=== PATIENT | female | born 1940 | race Caucasian/White ===

== ENCOUNTER 2021-12-14 22:53 | Emergency (ER) | payer MEDICARE, OTHER ==
[~2021-12-14] VITALS: Ht 167.6 cm; Wt 65.8 kg
--- NOTE | 2021-12-14 23:17 | NUR ---
BIBSISTER FOR POSS SYNCOPAL EPISODE UNWITNESSED. PATIENT WAS WALKING TO THE CAR AND STATES SHE SOMEHOW FELL AND DOES NOT RECALL HOW. PATIENT DENIES ANY DIZZINESS, WEAKNESS, C/P OR SOB CURRENTLY OR AT TIME OF EVENT. PT AWAKE AND ALERT WITHOUT NEURO DEFECITS. PT PRESENTING WITH HEMATOMA TO RIGHT SIDE OF HEAD + PAIN, R KNEE ABRASION AND PAIN, AND R SHOULDER PAIN. MD WAS AT THE BEDSIDE FOR EVAL.
--- NOTE | 2021-12-14 23:27 | NUR ---
PT REFUSED TO PLACE C-COLLAR STATES THAT THERE IS "NOTHING WRONG WITH MY NECK" MD NOTIFIED.
--- NOTE | 2021-12-14 23:28 | NUR ---
EMT AT BEDSIDE FOR EKG
[2021-12-14] MEDS ORDERED: TDAP [DIPH/PERTUSSIS/TET] 0.5 ML VIAL IM ONE ×2 (23:30→23:36)
--- NOTE | 2021-12-14 23:38 | NUR ---
C S S REPRESENTATIVE AT BEDSIDE FOR BLOOD DRAW
--- NOTE | 2021-12-14 23:46 | NUR ---
Keyur cheung in [facility] - 12/14/21 at 2350 by DANA PT TAKEN TO CT VIA JANNA
--- NOTE | 2021-12-14 23:48 | NUR ---
taken to radiology
[2021-12-15] LABS: BASOPHILS % (AUTO) 0.1 % (0.0-2.0); EOSINOPHILS % (AUTO) 0.5 % (0.0-6.0); HEMATOCRIT 41 % (33-45); HEMOGLOBIN 13.3 g/dL (11.5-14.8); LYMPHOCYTES # (AUTO) 1.7 K/uL (0.8-4.8); LYMPHOCYTES % (AUTO) 10.5 % (20.0-44.0); MEAN CORPUSCULAR HGB CONC 32 g/dl (31.0-36.0); MEAN CORPUSCULAR VOLUME 92 fL (82-100); MONOCYTES # (AUTO) 0.7 K/uL (0.1-1.30); MONOCYTES % (AUTO) 4.4 % (2.0-12.0); NEUTROPHILS # (AUTO) 13.5 K/uL (1.8-8.9); NEUTROPHILS % (AUTO) 84.5 % (43.0-81.0); PLATELET COUNT (AUTO) 206 K/uL (150-450); RED BLOOD CELL COUNT(AUTO) 4.47 MIL/uL (4.0-5.2)
[2021-12-15 00:15] LABS: ALANINE AMINOTRANSFERASE 28 U/L (12-78); ALBUMIN 3.8 g/dL (3.4-5.0); ALKALINE PHOSPHATASE 90 U/L (46-116); ASPARTATE AMINOTRANSFERASE 29 U/L (15-37); BILIRUBIN,DIRECT 0.1 mg/dL (0.0-0.2); BILIRUBIN,TOTAL 0.4 mg/dL (0.2-1.0); CALCIUM, SERUM 9.1 mg/dL (8.5-10.1); CARBON DIOXIDE 32 mmol/L (21-32); CHLORIDE 103 mmol/L (98-107); CREATININE 0.8 mg/dL (0.6-1.3); GLUCOSE 122 mg/dL (74-106); SODIUM SERUM 138 mmol/L (136-145); TOTAL PROTEIN, SERUM 7.2 g/dL (6.4-8.2); UREA NITROGEN, BLOOD 18 mg/dL (7-18)
--- NOTE | 2021-12-15 01:01 | NUR ---
FOLLOWED UP WITH [facility] REGARDING IMAGING REPORT. ON QUE TO BE READ BY RADIOLOGY
--- NOTE | 2021-12-15 01:03 | NUR ---
urine collected and sent to lab
--- NOTE | 2021-12-15 01:31 | NUR ---
Patient does not wish to proceed with medical care recommended by Dr. Jarrett. Patient given information related to possible complications, up to and including , which could occur as a result of leaving the hospital at this time. Patient verbalizes understanding of risks involved due to leaving against medical advice. Patient has signed AMA form.
[2021-12-15 01:39] VITALS: BP 151/78
[2021-12-15 03:32] LABS: BILIRUBIN,URINE NEGATIVE (NEGATIVE); COLOR,URINE YELLOW (YELLOW); LEUKOCYTE ESTERASE ,URINE NEGATIVE (NEGATIVE); NITRITE, URINE NEGATIVE (NEGATIVE); PROTEIN,URINE NEGATIVE (NEGATIVE); UGLUCOSE NEGATIVE (NEGATIVE); UROBILINOGEN,URINE 0.2 EU/dL (0.2)
[2021-12-15 07:50] LABS: BACTERIA,URINE None seen /HPF (None Seen); SQUAMOUS EPITHELIAL CELL,UR None Seen /HPF (None Seen); WBC,URINE 0-2 /HPF (0-3)
== END 2021-12-15 01:39 | disposition left against medical advice (07) ==
LOC: ER 22:59
DX: R55 Syncope and collapse (principal); S40.011A Contusion of right shoulder, initial encounter; S83.91XA Sprain of unspecified site of right knee, initial encounter; S06.5X9A Traumatic subdural hemorrhage with loss of consciousness of unspecified duration, initial encounter; S06.6X9A Traumatic subarachnoid hemorrhage with loss of consciousness of unspecified duration, initial encounter; I10 Essential (primary) hypertension; W10.9XXA Fall (on) (from) unspecified stairs and steps, initial encounter; Y93.89 Activity, other specified; Y92.89 Other specified places as the place of occurrence of the external cause; Y99.8 Other external cause status
CPT/HCPCS: 36415; 70450; 71045; 72125; 73010; 73564; 80048; 80076; 81001; 82962; 84484; 85025; 85730; 90471; 90715; 93005; 99285; L0172